=== PATIENT | male | born 1990 | race Caucasian/White ===

== ENCOUNTER 2016-10-30 21:15 | Emergency (ER) | payer SELFPAY ==
[~2016-10-30] VITALS: Ht 188 cm; Wt 90.9 kg
[2016-10-30 21:36] LABS: MCH 30.6 PG (29.0-34.0); MCHC 34.5 G/DL (30.0-36.0); MCV 88.8 FL (86-99); MEAN PLAT.VOLUME 9.9 uM^3 (9.0-12.4); PLATELET COUNT 301 K/uL (156-360); RBC DIS.WIDTH-CV 12.4 % (11.8-14.6); RBC DIS.WIDTH-SD 40.6 % (39-53); RED BLOOD COUNT 5.29 M/uL (4.00-5.50); WHITE BLOOD COUNT 16.9 K/uL (4.1-10.2)
[2016-10-30 21:44] LABS: CHLORIDE 105 mEq/L (99-109); POTASSIUM 3.7 mEq/L (3.7-5.4); SODIUM 139 mEq/L (136-147)
[2016-10-30 21:47] LABS: GLUCOSE 132 mg/dL (70-99)
[2016-10-30 21:48] LABS: ANION GAP 10 MEQ/L (2-14)
[2016-10-30 21:49] LABS: TOTAL BILIRUBIN 1.1 mg/dL (0.0-1.0)
[2016-10-30 21:50] LABS: ALKALINE PHOSPHATASE 103 IU/L (3-129)
[2016-10-30 21:51] LABS: GFR ESTIMATE (CALCULATED) > 59 mL/min/; UREA NITROGEN (BUN) 13 mg/dL (9-23)
[2016-10-30] MEDS ORDERED: FLOMAX0.4 MG PO (22:48)
[2016-10-30] MEDS ORDERED: PERCOCET 5/31 TABLET PO (22:48)
[2016-10-30] MEDS ORDERED: ZOFRAN ODT4 MG PO (22:48)
[2016-10-30 22:52] LABS: ADD MIUA? YES; BILIRUBIN NEGATIVE; BLOOD MODERATE; COLOR YELLOW ((YELLOW)); GLUCOSE (STRIP) NEGATIVE; KETONES 5; LEUKOCYTES NEGATIVE; NITRITE NEGATIVE; PROTEIN (STRIP) 30; SPECIFIC GRAVITY 1.023 (1.000-1.030)
[2016-10-30 23:26] VITALS: BP 145/88
[2016-10-31 00:01] LABS: EPITHELIAL CELLS RARE /HPF; MUCUS TRACE /LPF; RED BLOOD CELLS 30-40 /HPF (0-5); UCUL ADDED? NO; WHITE BLOOD CELLS 0-5 /HPF (0-5)
[2016-10-31 00:02] LABS: BACTERIA 2+ /HPF
[2016-10-31 00:03] LABS: CALCIUM OXALATE CRYSTALS 1+ /HPF; CRYSTALS PRESENT
== END 2016-10-30 23:27 | disposition home or self-care (01) ==
LOC: EME 21:15
DX: N13.2 Hydronephrosis with renal and ureteral calculous obstruction (principal); N23 Unspecified renal colic; F17.200 Nicotine dependence, unspecified, uncomplicated
CPT/HCPCS: 74176; 80053; 81003; 85027; 99281; 99284; J1885; J2270; J2405; J7030